=== PATIENT | female | born 1975 | race American Indian/Alaskan Native ===

== ENCOUNTER 2020-07-16 09:21 | Emergency (ER) | payer SELFPAY ==
[2020-07-16 11:07] VITALS: BP 148/94
--- NOTE | 2020-07-16 12:54 | Emergency Department Report ---
ED Extremity Problem HPI - General Chief complaint: Shoulder Injury Stated complaint: RT SHOULDER PAIN Time Seen by Provider: 07/16/20 12:52 Source: patient Mode of arrival: Ambulatory Limitations: No Limitations - History of Present Illness Initial comments: Patient is a 45-year-old female presents emergency room with complaints of right shoulder pain that began 3 days ago. She states that she has pain when she tries to lift arm up. She denies any fall or injury. She is believes that she may have slept wrong on the arm. She denies any numbness or weakness. She states that she did have a rotator cuff to the left shoulder but denies any prior injury to the right shoulder. She has a past medical history of migraines. No allergies to medications. She states that she is postmenopausal. - Related Data Previous Rx's Medication Instructions Recorded Last Taken Type Menthol/Camphor [[place] 1 applicatio TP BID #8 oint...g. 07/16/20 Unknown Rx Ointment] Naproxen [EC-Naprosyn] 500 mg PO BID PRN #14 tablet. 07/16/20 Unknown Rx methOCARBAMOL [Robaxin TAB] 500 mg PO BID PRN #14 tab 07/16/20 Unknown Rx Allergies Allergy/AdvReac Type Severity Reaction Status Date / Time No Known Allergies Allergy Unverified 07/16/20 11:05 ED Review of Systems ROS: Stated complaint: RT SHOULDER PAIN Other details as noted in HPI Comment: All other systems reviewed and negative ED Past Medical Hx - Past Medical History Previous Medical History?: No - Surgical History Past Surgical History?: Yes Additional Surgical History: Tubal ligation - Medications Home Medications: Home Medications Medication Instructions Recorded Confirmed Last Taken Type Menthol/Camphor [[place] 1 applicatio TP BID #8 oint...g. 07/16/20 Unknown Rx Ointment] Naproxen [EC-Naprosyn] 500 mg PO BID PRN #14 tablet. 07/16/20 Unknown Rx methOCARBAMOL [Robaxin TAB] 500 mg PO BID PRN #14 tab 07/16/20 Unknown Rx ED Physical Exam - General Limitations: No Limitations General appearance: alert, in no apparent distress - Head Head exam: Present: atraumatic, normocephalic - Eye Eye exam: Present: normal appearance - ENT ENT exam: Present: mucous membranes moist - Respiratory Respiratory exam: Present: normal lung sounds bilaterally. Absent: respiratory distress, wheezes, rales, rhonchi, stridor, chest wall tenderness, accessory muscle use, decreased breath sounds, prolonged expiratory - Cardiovascular Cardiovascular Exam: Present: regular rate, normal rhythm, normal heart sounds. Absent: systolic murmur, diastolic murmur, rubs, gallop - Extremities Exam Extremities exam: Present: other (no bony ttp of the right UE, no AC joint ttp, clavicles are equal, no clavicular ttp, FROM of the RUE, discomfort with full flexion of the right shoulder, no deformity, neurovascularly intact) - Neurological Exam Neurological exam: Present: alert, oriented X3 - Psychiatric Psychiatric exam: Present: normal affect, normal mood - Skin Skin exam: Present: warm, dry, intact ED Course Vital Signs 07/16/20 11:06 Temperature 98 F Pulse Rate 81 Respiratory 16 Rate Blood Pressure 148/94 [Right] O2 Sat by Pulse 96 Oximetry ED Medical Decision Making - Medical Decision Making Patient is a 45-year-old female presents emergency room with complaints of right shoulder pain that began 3 days ago. She states that she has pain when she tries to lift arm up. She denies any fall or injury. She is believes that she may have slept wrong on the arm. She denies any numbness or weakness. She states that she did have a rotator cuff to the left shoulder but denies any prior injury to the right shoulder. She has a past medical history of migraines. No allergies to medications. She states that she is postmenopausal. VSS. on exam:no bony ttp of the right UE, no AC joint ttp, clavicles are equal, no clavicular ttp, FROM of the RUE, discomfort with full flexion of the right shoulder, no deformity, neurovascularly intact. Examination appears most consistent with a tendinitis. She has had no acute trauma. She has no clinical signs of fracture or dislocation. Patient will be referred to orthopedic for further evaluation. Patient given prescription for naproxen, Robaxin, [place] balm ointment. Advised patient Please use medication as prescribed. May use ice for 15 minutes at a time, rest, heating pad, Epsom salt bath. Follow-up with a orthopedic doctor. Return to emergency room for any new or worsening symptoms. - Differential Diagnosis Strain, sprain, tendinitis, arthritis, bursitis Critical care attestation.: If time is entered above; I have spent that time in minutes in the direct care of this critically ill patient, excluding procedure time. ED Disposition Clinical Impression: Right shoulder pain Qualifiers: Chronicity: acute Qualified Code(s): M25.511 - Pain in right shoulder Disposition: DC-01 TO HOME OR SELFCARE Is pt being admited?: No Does the pt Need Aspirin: No Condition: Stable Instructions: Shoulder Pain, [id number] Additional Instructions: Please use medication as prescribed. May use ice for 15 minutes at a time, rest, heating pad, Epsom salt bath. Follow-up with a orthopedic doctor. Return to emergency room for any new or worsening symptoms. Prescriptions: Naproxen [EC-Naprosyn] 500 mg PO BID PRN #14 tablet.dr PRN Reason: pain methOCARBAMOL [Robaxin TAB] 500 mg PO BID PRN #14 tab PRN Reason: pain Menthol/Camphor [[place] Ointment] 1 applicatio TP BID #8 oint...g. Referrals: JACOB CARNEY MD [Staff Physician] - 2-[address] [facility] [Provider Group] - 2-3 Days Forms: Work/School Release Form(ED) Time of Disposition: 12:56 Print Language: TURKISH
== END 2020-07-16 13:40 | disposition home or self-care (01) ==
LOC: ED 09:21
DX: M25.511 Pain in right shoulder (principal); Z98.51 Tubal ligation status
CPT/HCPCS: 99281

== ENCOUNTER 2020-09-01 10:50 | Emergency (ER) | payer SELFPAY ==
[2020-09-01 11:01] VITALS: BP 148/83
[2020-09-01] MEDS ORDERED: ACETAMINOPHEN 325 MG TAB PO ONE (11:15)
--- NOTE | 2020-09-01 11:16 | Event Note ---
ED Screening Note Date of service: 09/01/20 Time: 11:10 ED Screening Note: This initial assessment/diagnostic orders/clinical plan/treatment(s) is/are subject to change based on patients health status, clinical progression and re- assessment by fellow clinical providers in the ED. Further treatment and workup at subsequent clinical providers discretion. Patient/guardian urged not to elope from the ED as their condition may be serious if not clinically assessed and managed. Initial orders include: 45-year-old female states that she test positive for Covid on she presents to the ER today complaining of worsening increasing coughing body aches fever and shortness of breath. She denies any past medical history
== END 2020-09-01 11:15 | disposition left against medical advice (07) ==
LOC: ED 10:50
DX: R06.00 Dyspnea, unspecified (principal); Z53.21 Procedure and treatment not carried out due to patient leaving prior to being seen by health care provider